=== PATIENT | female | born 1950 | race Caucasian/White ===

== ENCOUNTER → 2021-09-29 | Outpatient (CLI) | payer MEDICARE, MEDICAID ==
[~2021-09-29] MED LIST: ABILIFY5 MG PO; CEFTIN500 MG PO; CYMBALTA 60MG60 MG PO; DESYREL 50MG50 MG PO; DITROPAN XL10 MG PO; KLONOPIN2 MG PO; LIPITOR 40MG TA40 MG PO; MAG-OX 400400 MG/TAB PO; NEURONTIN300 MG/CAP PO; NORVASC 5MG5 MG/TAB PO; PERCOCET 325 MG1 TAB PO; PRILOSEC 20MG20 MG PO; PRINIVIL5 MG PO; PROAIR HFA0.09 MG/AC IH; ZOVIRAX400 MG PO
== END ==
LOC: MHCPAIN 13:17
DX: M47.816 Spondylosis without myelopathy or radiculopathy, lumbar region (principal); M48.062 Spinal stenosis, lumbar region with neurogenic claudication; M54.16 Radiculopathy, lumbar region; M53.3 Sacrococcygeal disorders, not elsewhere classified; M96.1 Postlaminectomy syndrome, not elsewhere classified
CPT/HCPCS: G0463

== ENCOUNTER 2021-10-09 07:25 | Emergency (ER) | payer MEDICARE, MEDICAID ==
[~2021-10-09] VITALS: Ht 165.1 cm; Wt 72.7 kg
[2021-10-09] MEDS ORDERED: KLONOPIN2 MG PO (08:06)
[2021-10-09] MEDS ORDERED: PERCOCET 325 MG1 TAB PO (08:06)
[2021-10-09 08:15] LABS: BASO # 0.1 K/mm3 (0.0-0.2); BASO % 0.8 % (0.0-2.0); EOS # 0.2 K/mm3 (0.0-0.7); GRAN # 5.5 K/mm3 (1.4-6.5); GRAN % 69.4 % (42.2-75.2); HEMOGLOBIN 12.1 g/dl (12.5-16.0); LYMPH # 1.4 K/mm3 (1.2-3.4); LYMPH % 17.9 % (20.0-51.0); MEAN CELL VOLUME 86 fl (80.0-100.0); MEAN CORPUSCULAR HEMOGLOBIN 29 pg (27-31); MEAN CORPUSCULAR HGB CONC 33 g/dl (33.0-37.0); MEAN PLATELET VOLUME 8.8 fl (7.4-10.4); MONO # 0.7 K/mm3 (0.1-0.6); MONO % 8.5 % (1.7-9.3); PLATELET COUNT 160 K/mm3 (130-400); RED BLOOD COUNT 4.25 M/mm3 (4.10-5.30); REDCELL DISTRIBUTION WIDTH-CV 13.8 % (11.5-14.5)
[2021-10-09 08:18] LABS: HEMATOCRIT 36.5 % (37.0-47.0)
[2021-10-09 08:29] LABS: COLLECTION METHOD CLEAN CATCH
[2021-10-09 08:33] LABS: ALBUMIN 4.1 gm/dL (3.4-4.8); BILIRUBIN,TOTAL 0.4 mg/dL (0.2-1.2); CALCIUM 9.1 mg/dL (8.4-10.2); CREATININE, serum 1.06 mg/dL (0.57-1.11); POTASSIUM 4.2 mmol/L (3.5-4.5); TOTAL PROTEIN 7.5 gm/dL (6.2-8.1)
[2021-10-09 08:38] LABS: PH 7 (5-8); SQUAMOUS EPITHELIAL None Seen /hpf (0-10); URINE APPEARANCE Clear (CLEAR/HAZY); URINE BACTERIA None Seen /hpf (NONE SEEN); URINE BILIRUBIN Negative (NEGATIVE); URINE BLOOD Negative (NEGATIVE); URINE COLOR Yellow (YELLOW); URINE GLUCOSE Negative (NEGATIVE); URINE KETONE Negative (NEGATIVE); URINE LEUKOCYTE ESTERASE Negative (NEGATIVE); URINE NITRATE Negative (NEGATIVE); URINE PROTEIN(semi-quant) Negative (NEGATIVE); URINE RBC 0-2 /hpf (0-2); URINE UROBILINOGEN Negative (NEGATIVE)
[2021-10-09 09:36] LABS: TRICYCLIC ANTIDEPRESS URINE NEGATIVE
[2021-10-09 12:25] VITALS: BP 147/92; PULSE 92; TEMP 98.3
== END 2021-10-09 12:28 | disposition home or self-care (01) ==
LOC: COL.ER 07:25
PROVIDERS: Family Medicine
DX: S00.83XA Contusion of other part of head, initial encounter (principal); M54.2 Cervicalgia; M54.50 Low back pain, unspecified; I10 Essential (primary) hypertension; E78.5 Hyperlipidemia, unspecified; K21.9 Gastro-esophageal reflux disease without esophagitis; F41.9 Anxiety disorder, unspecified; Z20.822 Contact with and (suspected) exposure to COVID-19; Z87.891 Personal history of nicotine dependence; Z79.899 Other long term (current) drug therapy; W22.8XXA Striking against or struck by other objects, initial encounter
CPT/HCPCS: J2310; J7030

== ENCOUNTER → 2021-10-21 | Outpatient (CLI) | payer MEDICARE, MEDICAID | LOC: MHCPAIN 12:43 | DX: M47.817 Spondylosis without myelopathy or radiculopathy, lumbosacral region (principal); M53.3 Sacrococcygeal disorders, not elsewhere classified; M54.16 Radiculopathy, lumbar region | CPT/HCPCS: J1100; Q9967 ==